=== PATIENT | male | born 1940 | race Caucasian/White ===

== ENCOUNTER → 2016-10-26 | Outpatient (CLI) | payer MEDICARE, OTHER ==
[~2016-10-26] VITALS: Ht 170.2 cm; Wt 64.9 kg
[~2016-10-26] MED LIST: AMLO10TA82 PO; APIX5TAB2 PO; ASP325TEC PO; ASP81CT PO; ATEN50TA PO; CATHETER FLUSH 10 ML SYR IV PRN; LISI-552 PO; LISI10TA2 PO; LOVA40TA2 PO; METO-352 PO; NITRODUR; NTR.4SL SL; REGADENOSON 0.4 MG/5 ML SYR (LEXISCAN) IV ONE
[2016-10-26 09:46] VITALS: BP 200/108
--- NOTE | 2016-10-26 19:12 | STRESS TEST ---
DATE OF SERVICE: 10/26/2016 RESTING AND POST REGADENOSON TECHNETIUM 99M TETROFOSMIN SPECT CT IMAGING PRIMARY PHYSICIAN: Ranjit Spaulding MD CLINICAL DIAGNOSIS: Chest discomfort, shortness of breath, paroxysmal atrial fibrillation. Baseline images were carried out after injection of 10.08 mCi of technetium 99M Tetrofosmin for stress imaging. Subsequently, 0.4 mg regadenoson was given, which was followed by 32.8 mCi technetium 99M Tetrofosmin for stress imaging. The electrocardiogram showed sinus rhythm with left bundle branch block and isolated premature ventricular contractions. The electrocardiogram did not change significantly with the regadenoson infusion. The patient tolerated the procedure well. Review of images at rest and following stress indicate some diaphragmatic attenuation of the inferior wall, both at rest and following regadenoson infusion. However, there is no distinct evidence of any significant myocardial ischemia or infarction. Gated images show normal global left ventricular systolic function with normal regional wall motion. Left ventricular ejection fraction is calculated to be 56%. Left ventricular end diastolic volume is 61 mL. TID is absent (0.93). CONCLUSIONS: 1. No evidence of any significant myocardial ischemia or infarction on this study. 2. Normal regional wall motion. 3. Normal global left ventricular systolic function with a calculated ejection fraction of 56%. Job ID: [id number] DocumentID: [id number] Dictated Date: 10/26/2016 13:27:57 Sales Data Analyst Date: 10/26/2016 17:07:56 Dictated By: SAMEERA WALTER MD, MA, FACP, FACC,
== END ==
LOC: CARD 08:28
PROVIDERS: ATTEND Internal Medicine Cardiovascular Disease
DX: J43.8 Other emphysema (principal); I25.10 Atherosclerotic heart disease of native coronary artery without angina pectoris; I48.0 Paroxysmal atrial fibrillation; R06.02 Shortness of breath; Z86.79 Personal history of other diseases of the circulatory system
CPT/HCPCS: 78452; 93017

== ENCOUNTER → 2016-11-01 | Outpatient (CLI) | payer MEDICARE, OTHER ==
[~2016-11-01] MED LIST changes: -CATHETER FLUSH 10 ML SYR IV PRN; -REGADENOSON 0.4 MG/5 ML SYR (LEXISCAN) IV ONE
== END ==
LOC: CARD 11:23
PROVIDERS: ATTEND Internal Medicine Cardiovascular Disease
DX: R06.02 Shortness of breath (principal); J43.8 Other emphysema; I25.10 Atherosclerotic heart disease of native coronary artery without angina pectoris; I48.0 Paroxysmal atrial fibrillation; Z86.79 Personal history of other diseases of the circulatory system
CPT/HCPCS: 93306

== ENCOUNTER 2017-10-10 17:20 | Emergency (ER) | payer MEDICARE, OTHER ==
[~2017-10-10] VITALS: Ht 172.7 cm; Wt 72.6 kg
[2017-10-10] MEDS ORDERED: RT-ALBUTEROL/IPRATROPIUM 3 ML (DUONEB) VIAL INH ONE (17:30)
[2017-10-10] MEDS ORDERED: ASPIRIN 81 MG CHEW (CHILDREN'S ASA) PO ONE (17:30)
[2017-10-10 17:47] LABS: BASOPHILS # (AUTO) 0.1 10^3/uL (0.0-0.1); BASOPHILS % (AUTO) 1 % (0-10); EOSINOPHILS # (AUTO) 0.2 10^3/uL (0.0-0.3); EOSINOPHILS % (AUTO) 2 % (0-10); HEMATOCRIT 44 % (40-54); HEMOGLOBIN 15.8 G/DL (13.3-17.7); LYMPHOCYTES # (AUTO) 1.7 X 10^3 (1.0-4.0); LYMPHOCYTES % (AUTO) 27 % (12-44); MEAN CORPUSCULAR HEMOGLOBIN 32 PG (25-34); MEAN CORPUSCULAR HGB CONC 36 G/DL (32-36); MEAN CORPUSCULAR VOLUME 90 FL (80-99); MEAN PLATELET VOLUME 9.4 FL (7.4-10.4); MONOCYTES # (AUTO) 0.7 X 10^3 (0.0-1.0); MONOCYTES % (AUTO) 11 % (0-12); NEUTROPHILS # (AUTO) 3.6 X 10^3 (1.8-7.8); NEUTROPHILS % (AUTO) 59 % (42-75); PLATELET COUNT 217 10^3/uL (130-400); RED BLOOD COUNT 4.94 10^6/uL (4.35-5.85); RED CELL DISTRIBUTION WIDTH 13.9 % (10.0-14.5); WHITE BLOOD COUNT 6.2 10^3/uL (4.3-11.0)
--- NOTE | 2017-10-10 17:50 | ED Respiratory ---
General Stated Complaint: CHEST PAIN Source: patient Exam Limitations: no limitations History of Present Illness Date Seen by Provider: October 10, 2017 Time Seen by Provider: 17:29 Initial Comments The patient presents to the ER by private conveyance with a friend and his son. The patient is a history of stroke and is a difficult historian but says he was not having any chest pain but the friend noted that about 30 minutes prior to arrival he was clutching his chest and struggling with expectorating of large amount of mucousy phlegm. Patient is been having a cough is been more productive over the last week. He's not had any fevers chills nausea vomiting, sweats, chest pain, abdominal pain, diarrhea. He does of a history of COPD. He does not follow with any doctor for several years. He has a known history of coronary artery disease and history of stroke. He is not taking any medications right now. He does smoke about a pack to a pack and a half per day according to his son. Allergies and Home Medications Allergies Coded Allergies: codeine (Unverified Allergy, Unknown, 01/10/14) Home Medications Lisinopril 20 Mg Tablet, 20 MG PO DAILY Prescribed by: PETE GOULD on 01/23/16 1202 Metoprolol Succinate 50 Mg Tab.er.24h, 50 MG PO DAILY Prescribed by: PETE GOULD on 01/23/16 1202 Patient Home Medication List Home Medication List Reviewed: Yes Review of Systems Constitutional: No chills, No diaphoresis EENTM: No hearing loss, No ear pain Respiratory: cough, phlegm, short of breath; No wheezing Cardiovascular: No chest pain; Hx of Intervention; No palpitations, No syncope ; vascular heart diseas Gastrointestinal: No abdominal pain, No constipation, No diarrhea, No nausea, No vomiting Genitourinary: No discharge, No dysuria Musculoskeletal: No back pain, No joint pain Past Jypuyxp-Adslub-Ywjqwu Hx Patient Social History Alcohol Use: Regular Use Alcohol Beverage of Choice: Whiskey Recreational Drug Use: No Smoking Status: Current Everyday Smoker Type Used: Cigarettes (1-1.5 ppd) Recent Hopitalizations: No Immunizations Up To Date Tetanus Booster (TDap): Unknown Past Medical History Coronary Stent, Gallbladder Coronary Artery Disease, Heart Attack, Hypertension Reproductive Disorders: No Sexually Transmitted Disease: No HIV/AIDS: No Adverse Reaction/Blood Tranf: No Family Medical History Arthritis G8 SISTER (fell not sure of injuries) Asthma G8 SISTER (passed from some kind of lung prob) Cardiovascular disease 19 FATHER (heart problems) Visual disorder 19 MOTHER (vision but does not know what she passed from) Physical Exam Vital Signs Vital Signs - First Documented 10/10/17 17:20 Temp 97.5 Pulse 88 Resp 20 B/P (MAP) 137/82 (100) Capillary Refill : General Appearance: no apparent distress, thin Eyes: Bilateral Eye Normal Inspection, Bilateral Eye PERRL, Bilateral Eye EOMI HEENT: PERRL/EOMI, normal ENT inspection, pharynx normal Neck: non-tender, full range of motion, normal inspection Respiratory: chest non-tender, no respiratory distress, no accessory muscle use , decreased breath sounds, wheezing (faint bilateral) Cardiovascular: normal peripheral pulses, regular rate, rhythm, no edema Gastrointestinal: normal bowel sounds, non tender, soft Extremities: no pedal edema, normal capillary refill Neurologic/Psychiatric: alert, normal mood/affect, other (oriented to person and place as well as situation but not time. He has baseline deficits of slurred speech and walks with a cane per his son.) Skin: normal color, warm/dry, other (arthopod infestation) Progress/Results/Core Measures Suspected Sepsis SIRS Temperature: Pulse: Respiratory Rate: Laboratory Tests 10/10/17 17:35: White Blood Count 6.2 Blood Pressure / Mean: Laboratory Tests 10/10/17 17:35: Creatinine 1.00, INR Comment 1.0, Platelet Count 217, Total Bilirubin 1.3H Results/Orders Lab Results Laboratory Tests Test 10/10/17 17:35 10/10/17 18:09 Range/Units White Blood Count 6.2 4.3-11.0 10^3/uL Red Blood Count 4.94 4.35-5.85 10^6/uL Hemoglobin 15.8 13.3-17.7 G/DL Hematocrit 44 40-54 % Mean Corpuscular Volume 90 80-99 FL Mean Corpuscular Hemoglobin 32 25-34 PG Mean Corpuscular Hemoglobin Concent 36 32-36 G/DL Red Cell Distribution Width 13.9 10.0-14.5 % Platelet Count 217 130-400 10^3/uL Mean Platelet Volume 9.4 7.4-10.4 FL Neutrophils (%) (Auto) 59 42-75 % Lymphocytes (%) (Auto) 27 12-44 % Monocytes (%) (Auto) 11 0-12 % Eosinophils (%) (Auto) 2 0-10 % Basophils (%) (Auto) 1 0-10 % Neutrophils # (Auto) 3.6 1.8-7.8 X 10^3 Lymphocytes # (Auto) 1.7 1.0-4.0 X 10^3 Monocytes # (Auto) 0.7 0.0-1.0 X 10^3 Eosinophils # (Auto) 0.2 0.0-0.3 10^3/uL Basophils # (Auto) 0.1 0.0-0.1 10^3/uL Prothrombin Time 13.2 12.2-14.7 SEC INR Comment 1.0 0.8-1.4 Activated Partial Thromboplast Time 26 24-35 SEC D-Dimer 0.46 0.00-0.49 UG/ML Sodium Level 136 135-145 MMOL/L Potassium Level 3.6 3.6-5.0 MMOL/L Chloride Level 105 98-107 MMOL/L Carbon Dioxide Level 19 L 21-32 MMOL/L Anion Gap 12 5-14 MMOL/L Blood Urea Nitrogen 10 7-18 MG/DL Creatinine 1.00 0.60-1.30 MG/DL Estimat Glomerular Filtration Rate > 60 BUN/Creatinine Ratio 10 Glucose Level 84 70-105 MG/DL Calcium Level 9.2 8.5-10.1 MG/DL Magnesium Level 2.0 1.8-2.4 MG/DL Total Bilirubin 1.3 H 0.1-1.0 MG/DL Aspartate Amino Transf (AST/SGOT) 16 5-34 U/L Alanine Aminotransferase (ALT/SGPT) 8 0-55 U/L Alkaline Phosphatase 64 40-136 U/L Myoglobin 39.1 10.0-92.0 NG/ML Troponin I < 0.30 <0.30 NG/ML B-Type Natriuretic Peptide 365.3 H <100.0 PG/ML Total Protein 6.9 6.4-8.2 GM/DL Albumin 4.0 3.2-4.5 GM/DL Serum Alcohol 204 H <10 MG/DL Urine Color YELLOW Urine Clarity CLEAR Urine pH 6 5-9 Urine Specific [place] 1.010 L 1.016-1.022 Urine Protein 1+ H NEGATIVE Urine Glucose (UA) NEGATIVE NEGATIVE Urine Ketones NEGATIVE NEGATIVE Urine Nitrite NEGATIVE NEGATIVE Urine Bilirubin NEGATIVE NEGATIVE Urine Urobilinogen NORMAL NORMAL MG/DL Urine Leukocyte Esterase 1+ H NEGATIVE Urine RBC (Auto) NEGATIVE NEGATIVE Urine RBC NONE /HPF Urine WBC 2-5 /HPF Urine Squamous Epithelial Cells RARE /HPF Urine Crystals NONE /LPF Urine Bacteria NEGATIVE /HPF Urine Casts NONE /LPF Urine Mucus NEGATIVE /LPF Urine Culture Indicated NO Urine Opiates Screen NEGATIVE NEGATIVE Urine Oxycodone Screen NEGATIVE NEGATIVE Urine Methadone Screen NEGATIVE NEGATIVE Urine Propoxyphene Screen NEGATIVE NEGATIVE Urine Barbiturates Screen NEGATIVE NEGATIVE Ur Tricyclic Antidepressants Screen NEGATIVE NEGATIVE Urine Phencyclidine Screen NEGATIVE NEGATIVE Urine Amphetamines Screen NEGATIVE NEGATIVE Urine Methamphetamines Screen NEGATIVE NEGATIVE Urine Benzodiazepines Screen NEGATIVE NEGATIVE Urine Cocaine Screen NEGATIVE NEGATIVE Urine Cannabinoids Screen NEGATIVE NEGATIVE My Orders Orders - KELLI MEEKS Albuterol/Ipra Inhalation Soln (Duoneb I (10/10/17 17:30) Svn Small Volume Nebulizer (10/10/17 17:30) Cbc With Automated Diff (10/10/17:30) Magnesium (10/10/17 17:30) Ekg Tracing (10/10/17 17:30) Cardiac Profile 1 (10/10/17 17:30) Comprehensive Metabolic Panel (10/10/17:30) Myoglobin Serum (10/10/17 17:30) Protime With Inr (10/10/17 17:30) Partial Thromboplastin Time (10/10/17 17:30) O2 (10/10/17 17:30) Monitor-Rhythm Ecg Trace Only (10/10/17:30) Aspirin Chewable Tablet (Baby Aspirin Ch (10/10/17 17:30) Saline Lock/Iv-Start (10/10/17 17:30) BNP (10/10/17 17:30) Fibrin Degradation Products (10/10/17 17:30) Drug Screen Stat (Urine) (10/10/17 17:30) Ua Culture If Indicated (10/10/17 17:30) Sputum Culture (10/10/17 17:30) Alcohol (10/10/17 17:35) Chest 1 View, Ap/Pa Only (10/10/17 17:30) Vital Signs/I&O 10/10/17 17:20 Temp 97.5 Pulse 88 Resp 20 B/P (MAP) 137/82 (100) Capillary Refill : Progress Note : Time: 18:30 Progress Note The patient has decided that he would like to have another drink and has decided to go AMA despite counseling from nursing staff and myself. We have advised him to follow up with a primary care provider or return if his symptoms get worse. Other than the alcohol level of 204 his labs are remarkably unremarkable. ECG Initial ECG Impression Date: October 10, 2017 Initial ECG Impression Time: 17:25 Initial ECG Rate: 93 Initial ECG Rhythm: Normal Sinus Initial ECG Intervals: QT (563) Initial ECG Impression: Nonspecific Changes Initial ECG Comparisson: Unchanged Comment Left bundle branch block with sinus rhythm and no discernible changes. Diagnostic Imaging Diagonstic Imaging: Xray Plain Films/CT/US/NM/MRI: chest (1v) Comments VIA [facility]. [place], [place] NAME: MIGUELITO MCDOWELL [facility] REC#: [id number] PT STATUS: REG ER : 1940 PHYSICIAN: KELLI MEEKS MD ADMIT DATE: 10/10/17/ER Draft Date of Exam:10/10/17 CHEST 1 VIEW, AP/PA ONLY EXAM: CHEST 1 VIEW, AP/PA ONLY. INDICATION: Chest pain. COMPARISON: CT chest without contrast 01/11/2014. FINDINGS: Normal heart size and central pulmonary vascularity. Calcified aorta. No dense consolidation, pleural effusion, or pneumothorax. Chronic posterior left rib fractures. No acute osseous findings. IMPRESSION: No acute cardiopulmonary findings. Dictated on workstation # [id number] Dict: 10/10/17 1807 Trans: 10/10/17 1812 [id number] Interpreted by: JENNIFER DEY MD Electronically signed by: Reviewed: Reviewed by Me Departure Impression Primary Impression: Dyspnea Qualified Codes: R06.02 - Shortness of breath Additional Impression: Cough Disposition: 07 AGAINST MEDICAL ADVICE Condition: Against Medical Advice Departure-Patient Inst. Referrals: TATY GUTIERREZ MD (PCP/Family) Primary Care Physician Copy Copies To 1: TATY GUTIERREZ MD, TITUS J October 10, 2017 17:50
[2017-10-10 17:54] LABS: PROTHROMBIN TIME PATIENT 13.2 SEC (12.2-14.7)
[2017-10-10 18:04] LABS: ALANINE AMINOTRANSFERASE 8 U/L (0-55); ALKALINE PHOSPHATASE 64 U/L (40-136); BILIRUBIN,TOTAL 1.3 MG/DL (0.1-1.0); BUN/CREATININE RATIO 10; CALCIUM 9.2 MG/DL (8.5-10.1); CARBON DIOXIDE 19 MMOL/L (21-32); CHLORIDE 105 MMOL/L (98-107); GFR ESTIMATED > 60; GLUCOSE 84 MG/DL (70-105); POTASSIUM 3.6 MMOL/L (3.6-5.0); SODIUM 136 MMOL/L (135-145); TOTAL PROTEIN 6.9 GM/DL (6.4-8.2)
[2017-10-10 18:10] LABS: MYOGLOBIN SERUM 39.1 NG/ML (10.0-92.0)
--- NOTE | 2017-10-10 18:12 | Diagnostic Imaging Report ---
EXAM: CHEST 1 VIEW, AP/PA ONLY. INDICATION: Chest pain. COMPARISON: CT chest without contrast 01/11/2014. FINDINGS: Normal heart size and central pulmonary vascularity. Calcified aorta. No dense consolidation, pleural effusion, or pneumothorax. Chronic posterior left rib fractures. No acute osseous findings. IMPRESSION: No acute cardiopulmonary findings. Dictated by: Dictated on workstation # [id number]
[2017-10-10 18:16] LABS: BILIRUBIN,URINE NEGATIVE (NEGATIVE); CLARITY,URINE CLEAR; COLOR,URINE YELLOW; GLUCOSE, URINE (UA) NEGATIVE (NEGATIVE); KETONES,URINE NEGATIVE (NEGATIVE); LEUKOCYTE ESTERASE ,URINE 1+ (NEGATIVE); NITRITE,URINE NEGATIVE (NEGATIVE); PH,URINE 6 (5-9); PROTEIN,URINE 1+ (NEGATIVE); UROBILINOGEN,URINE NORMAL (NORMAL)
[2017-10-10 18:27] LABS: BACTERIA,URINE NEGATIVE /HPF; SQUAMOUS EPITHELIAL CELL,UR RARE /HPF
[2017-10-10 18:31] LABS: AMPHETAMINE SCREEN, URINE NEGATIVE (NEGATIVE); BARBITURATE SCREEN URINE NEGATIVE (NEGATIVE); BENZODIAZEPINES SCREEN URINE NEGATIVE (NEGATIVE); CANNABINOID SCREEN, URINE NEGATIVE (NEGATIVE); COCAINE SCREEN URINE NEGATIVE (NEGATIVE); METHADONE STAT NEGATIVE (NEGATIVE); METHAMPHETAMINE SCREEN URINE S NEGATIVE (NEGATIVE); OPIATE SCREEN URINE NEGATIVE (NEGATIVE); OXYCODONE STAT NEGATIVE (NEGATIVE); PROPOXYPHENE STAT NEGATIVE (NEGATIVE); TRICYCLIC ANTIDEPRESSANTS SCRE NEGATIVE (NEGATIVE)
[2017-10-10 18:45] VITALS: BP 138/86
== END 2017-10-10 18:45 | disposition left against medical advice (07) ==
LOC: EDUNIT# 17:20 → ER 17:21
DX: R06.00 Dyspnea, unspecified (principal); R05 Cough; I25.10 Atherosclerotic heart disease of native coronary artery without angina pectoris; I10 Essential (primary) hypertension; I25.2 Old myocardial infarction; F17.210 Nicotine dependence, cigarettes, uncomplicated; Z82.49 Family history of ischemic heart disease and other diseases of the circulatory system; Z95.5 Presence of coronary angioplasty implant and graft; Z88.5 Allergy status to narcotic agent; Z86.73 Personal history of transient ischemic attack (TIA), and cerebral infarction without residual deficits
CPT/HCPCS: 36415; 71045; 80053; 80306; 80320; 81000; 83735; 83874; 83880; 84484; 85025; 85379; 85610; 85730; 93005; 93041

== ENCOUNTER 2019-07-14 11:05 | Emergency (ER) | payer MEDICARE ==
[~2019-07-14] VITALS: Ht 170 cm; Wt 75.0 kg
[2019-07-14] MEDS ORDERED: ETOMIDATE IV SOLN 20 MG/10 ML VIAL IV ONE (11:06)
[2019-07-14] MEDS ORDERED: LIDOCAINE DRIP PRE-MIX 2 GM/500 ML BAG IV ONE (11:06)
[2019-07-14] MEDS ORDERED: NS 1000 ML IV BAG IV ONE (11:06)
[2019-07-14] MEDS ORDERED: fentaNYL INJECTION 100 MCG/2 ML AMP INJ ONE (11:06)
[2019-07-14] MEDS ORDERED: MAG SULFATE 1 GM/100 ML IV PRE-MIX BAG IV ONE (11:06)
[2019-07-14] MEDS ORDERED: SUCCINYLCHOLINE INJ 100 MG/5 ML SYR INJ ONE (11:06)
[2019-07-14] MEDS ORDERED: EPINEPHrine 0.1 MG/ML 10 ML (HOSPIRA) SYR IJ ONE (11:06)
[2019-07-14] MEDS ORDERED: CATHETER FLUSH 10 ML SYR IV ONE (11:06)
[2019-07-14] MEDS ORDERED: PROPOFOL DRIP (ICU) 100 ML IV ONE (11:13)
[2019-07-14 11:52] LABS: BASOPHILS # (AUTO) 0.1 10^3/uL (0.0-0.1); BASOPHILS % (AUTO) 2 % (0-10); EOSINOPHILS # (AUTO) 0.1 10^3/uL (0.0-0.3); EOSINOPHILS % (AUTO) 2 % (0-10); HEMATOCRIT 48 % (40-54); HEMOGLOBIN 15.7 G/DL (13.3-17.7); LYMPHOCYTES # (AUTO) 3.3 X 10^3 (1.0-4.0); LYMPHOCYTES % (AUTO) 52 % (12-44); MEAN CORPUSCULAR HEMOGLOBIN 32 PG (25-34); MEAN CORPUSCULAR HGB CONC 33 G/DL (32-36); MEAN CORPUSCULAR VOLUME 96 FL (80-99); MEAN PLATELET VOLUME 10.8 FL (7.4-10.4); MONOCYTES # (AUTO) 0.3 X 10^3 (0.0-1.0); MONOCYTES % (AUTO) 5 % (0-12); NEUTROPHILS # (AUTO) 2.4 X 10^3 (1.8-7.8); NEUTROPHILS % (AUTO) 39 % (42-75); PLATELET COUNT 132 10^3/uL (130-400); RED CELL DISTRIBUTION WIDTH 13.4 % (10.0-14.5); WHITE BLOOD COUNT 6.3 10^3/uL (4.3-11.0)
--- NOTE | 2019-07-14 11:53 | Diagnostic Imaging Report ---
CHEST 1 VIEW, AP/PA ONLY Indication: Post intubation. Comparison: 10/10/2017. Findings: ET tube has tip 3.5 cm above the cielo. There is a small to moderate-sized pneumothorax involving approximately 20% of the right hemithorax volume. No mediastinal shift. No left-sided pneumothorax. Heart is enlarged. Prominence in the right perihilar region may be due to atelectasis. Impression: 1. [id number] right-sided pneumothorax without mediastinal shift. 2. Well-positioned ET tube. Dictated by: Dictated on workstation # [id number]
[2019-07-14 11:59] LABS: INR 1.4 (0.8-1.4); PROTHROMBIN TIME PATIENT 18.2 SEC (12.2-14.7)
[2019-07-14 12:05] LABS: ALBUMIN 3.3 GM/DL (3.2-4.5); BILIRUBIN,TOTAL 0.9 MG/DL (0.1-1.0); CALCIUM 8.6 MG/DL (8.5-10.1); CREATININE SERUM 1.42 MG/DL (0.60-1.30); MAGNESIUM 2.4 MG/DL (1.6-2.4); TOTAL PROTEIN 5.9 GM/DL (6.4-8.2)
--- NOTE | 2019-07-14 12:16 | NUR ---
[facility] contacted by Minna CERRATO and spoke with Sindy. She advises the patient is not a candidate for organ donation. Referral number is : [id number].
[2019-07-14 12:26] LABS: POTASSIUM 2.5 MMOL/L (3.6-5.0)
--- NOTE | 2019-07-14 12:38 | NUR ---
1107 Patient arrived to ER via [facility]. Patient has I-Jel in place and being ventilated through I-Jel. CPR in process by EMS. Per patient's daughter, patient was complaining of chest pain this morning and was attempting to get dressed when he collapsed and went unresponsive. 911 was called at 10:41. EMS states they arrived on scene and [facility] had defibrillated x 1 with AED prior to EMS arrival. EMS states patient was in v-fib on monitor and they shocked another 2 times prior to arrival in ER. Patient was given Epinephrine 1 mg x 2 times and Amiodorone 300 mg IV by EMS prior to arrival. Patient arrives in ER with no pulse, PEA on the monitor. CPR continued. EMS had placed an IV to the left AC that is infiltrated. 11:08 IO placed in right lower leg. NS Fluids infusing through IO. 1108 Epinephrine 1 mg given through IO. 1110 Blood Glucose check was 194 1111 Patient has pulse present to the left femoral artery. Monitor shows Sinus rhythm with multiple PVC's. 1111 BP 214/113, Pulse 72, Oxygen saturation 84%- ventilated through I-Jel 1113 EKG done and given to Dr. Delgadillo 1114 IV 20 ga placed in right AC x 1 attempt by Emily CERRATO
--- NOTE | 2019-07-14 12:45 | ED CPR ---
HPI-CPR General Chief Complaint: Code Blue Stated Complaint: CODE Nursing Triage Note: [facility]INT BROUGHT TO ER BY [facility] IN CARDIAC ARREST. PER FAMILY MEMBERS PATIENT WAS COMPLAINING OF CHEST PAIN THIS MORNING AND WHILE ATTEMPTING TO GET DRESSED TO COME TO ER BY PRIVATE VEHICLE PATIENT COLLAPSED AND BECAME UNRESPONSIVE. PER EMS PATIENT WAS DEFIBRILLATED X 1 BY [facility] WITH AED PRIOR TO EMS ARRIVAL. EMS ARRIVED AND FOUND PATIENT IN V-FIB AND HAD A TOTAL OF TWO MORE SHOCKS DURING TRANSPORT. EMS GAVE EPI X 2 DOSES AND AMIODORONE 300 MG IV. PATIENT'S IV UPON ARRIVAL IS INFILTRATED TO LEFT AC. Sepsis Screen: No Definite Risk Source of Information: EMS, Family Exam Limitations: Physical Impairments History of Present Illness Date Seen by Provider: Jul 14, 2019 Time Seen by Provider: 11:07 Initial Comments This 79-year-old gentleman presents to the emergency room via EMS after having a cardiac arrest in his home. He was experiencing chest pain and getting ready to come to the emergency room when he collapsed and became unresponsive. The arrest was witnessed and family attempted CPR. Emergency services arrived and rhythm was analyzed during CPR. He was defibrillated a total of 3 times for ventricular fibrillation and given 2 doses of epinephrine in the field and in route. Amiodarone 300 mg IV was administered. He arrives with ongoing CPR in asystole. Family reports he had not been feeling well in recent days. They also report he is fairly noncompliant with his medications. Blood sugar was 194. Allergies and Home Medications Allergies Coded Allergies: codeine (Unverified Allergy, Unknown, 01/10/14) Home Medications Lisinopril 20 Mg Tablet, 20 MG PO DAILY Prescribed by: PETE GOULD on 01/23/16 1202 Metoprolol Succinate 50 Mg Tab.er.24h, 50 MG PO DAILY Prescribed by: PETE GOULD on 01/23/16 1202 Patient Home Medication List Home Medication List Reviewed: Yes Review of Systems Review of Systems Constitutional: see HPI EENTM: No Symptoms Reported Respiratory: See HPI Cardiovascular: See HPI Gastrointestinal: No Symptoms Reported Genitourinary: No Symptoms Reported Musculoskeletal: no symptoms reported Skin: no symptoms reported Psychiatric/Neurological: See HPI Endocrine: No Symptoms Reported Hematologic/Lymphatic: No Symptoms Reported Past Mlrpblh-Mppofi-Tafhpl Hx Past Med/Social Hx: Reviewed Nursing Past Med/Soc Hx Patient Social History Alcohol Use: Regular Use Number of Drinks Today: GG Alcohol Beverage of Choice: Whiskey Recreational Drug Use: No Smoking Status: Current Everyday Smoker Type Used: Cigarettes 2nd Hand Smoke Exposure: Yes Recent Foreign Travel: No Contact w/Someone Who Travel: No Recent Infectious Disease Expo: No Recent Hopitalizations: No Immunizations Up To Date Tetanus Booster (TDap): Unknown Past Medical History Surgeries: Yes Coronary Stent, Gallbladder Respiratory: No Cardiac: Yes Coronary Artery Disease, Heart Attack, Hypertension Neurological: No Reproductive Disorders: No Sexually Transmitted Disease: No HIV/AIDS: No Gastrointestinal: No Musculoskeletal: No Endocrine: No Cancer: No Psychosocial: No Integumentary: No Blood Disorders: No Adverse Reaction/Blood Tranf: No Family Medical History Arthritis G8 SISTER (fell not sure of injuries) Asthma G8 SISTER (passed from some kind of lung prob) Cardiovascular disease 19 FATHER (heart problems) Visual disorder 19 MOTHER (vision but does not know what she passed from) Physical Exam Vital Signs Vital Signs - First Documented 07/14/19 07/14/19 11:07 11:28 Pulse 0 Resp 0 B/P (MAP) 102/60 Pulse Ox 84 O2 Delivery Ambu Bag O2 Flow Rate 15.00 Capillary Refill : Greater Than 3 Seconds Height, Weight, BMI Height: 5'8.00" Weight: 160lbs. 0.0oz. 72.820957st; 25.00 BMI Method:Stated General Appearance: Other (Unresponsive, pale, mottled) HEENT: Other (I-gel tube in place) Neck: Normal Inspection Respiratory: Other (Poor chest rise and compliance with BVM assistance. Patient did have some spontaneous respirations.) Cardiovascular: Other (Pulseless) Gastrointestinal: Soft; No Distended Extremity: No Pedal Edema, Other (Pale, cool, and mottled) Neurologic/Psychiatric: Other (Unresponsive) Skin: Normal Color, Warm/Dry Procedures/Interventions Date of ETT Placement: Jul 14, 2019 Time of ETT Placement: 11:26 Intubation Method: orotracheal Tube Size: 7.50 Medications: Etomidate, Propofol, Succinylcholine Positive End Tide CO2: No Breath Sounds after Intubation: bilateral-equal Intubation Complications: O2 saturation decreased Post Intubation Xray: Yes Right pneumothorax. ET tube in good position The I-gel device did not seem to be affording good air movement. There is very little chest rise. The device was removed. Induction was achieved with etomidate and succinylcholine 50 mg followed by an additional 50 mg. Intubation with a Juan laryngoscope blade was unsuccessful. This was then attempted with a Adamson blade with a smaller ET tube. There was intubation of the esophagus confirmed by no color change, breath sounds in the abdomen, and no chest rise. ET tube was removed. Intubation with the Michael laryngoscope was attempted unsuccessfully. Finally ABG was used to guide the laryngoscope through the vocal cords. Intubation was successful. This did improve his respiratory condition. Progress/Results/Core Measures Results/Orders Lab Results Laboratory Tests Test 07/14/19 11:10 07/14/19 11:15 Range/Units Glucometer 194 H 70-110 MG/DL White Blood Count 6.3 4.3-11.0 10^3/uL Red Blood Count 4.99 4.35-5.85 10^6/uL Hemoglobin 15.7 13.3-17.7 G/DL Hematocrit 48 40-54 % Mean Corpuscular Volume 96 80-99 FL Mean Corpuscular Hemoglobin 32 25-34 PG Mean Corpuscular Hemoglobin Concent 33 32-36 G/DL Red Cell Distribution Width 13.4 10.0-14.5 % Platelet Count 132 130-400 10^3/uL Mean Platelet Volume 10.8 H 7.4-10.4 FL Neutrophils (%) (Auto) 39 L 42-75 % Lymphocytes (%) (Auto) 52 H 12-44 % Monocytes (%) (Auto) 5 0-12 % Eosinophils (%) (Auto) 2 0-10 % Basophils (%) (Auto) 2 0-10 % Neutrophils # (Auto) 2.4 1.8-7.8 X 10^3 Lymphocytes # (Auto) 3.3 1.0-4.0 X 10^3 Monocytes # (Auto) 0.3 0.0-1.0 X 10^3 Eosinophils # (Auto) 0.1 0.0-0.3 10^3/uL Basophils # (Auto) 0.1 0.0-0.1 10^3/uL Prothrombin Time 18.2 H 12.2-14.7 SEC INR Comment 1.4 0.8-1.4 Activated Partial Thromboplast Time 68 H 24-35 SEC Sodium Level 143 135-145 MMOL/L Potassium Level 2.5 *L 3.6-5.0 MMOL/L Chloride Level 106 98-107 MMOL/L Carbon Dioxide Level 14 L 21-32 MMOL/L Anion Gap 23 H 5-14 MMOL/L Blood Urea Nitrogen 9 7-18 MG/DL Creatinine 1.42 H 0.60-1.30 MG/DL Estimat Glomerular Filtration Rate 48 BUN/Creatinine Ratio 6 Glucose Level 219 H 70-105 MG/DL Calcium Level 8.6 8.5-10.1 MG/DL Corrected Calcium 9.2 8.5-10.1 MG/DL Magnesium Level 2.4 1.6-2.4 MG/DL Total Bilirubin 0.9 0.1-1.0 MG/DL Aspartate Amino Transf (AST/SGOT) 204 H 5-34 U/L Alanine Aminotransferase (ALT/SGPT) 145 H 0-55 U/L Alkaline Phosphatase 105 40-136 U/L Myoglobin 1743.1 H 10.0-92.0 NG/ML Troponin I 0.709 *H <0.028 NG/ML Total Protein 5.9 L 6.4-8.2 GM/DL Albumin 3.3 3.2-4.5 GM/DL My Orders Orders - GRANT BERG MD Propofol Drip (Icu) (Diprivan Drip (Icu) (07/14/19 11:13) Cbc With Automated Diff (07/14/19 11:42) Magnesium (07/14/19 11:42) Chest 1 View, Ap/Pa Only (07/14/19 11:42) Ekg Tracing (07/14/19 11:42) Comprehensive Metabolic Panel (07/14/19 11:42) Myoglobin Serum (07/14/19 11:42) Protime With Inr (07/14/19 11:42) Partial Thromboplastin Time (07/14/19 11:42) O2 (07/14/19 11:42) Monitor-Rhythm Ecg Trace Only (07/14/19 11:42) Ed Iv/Invasive Line Start (07/14/19 11:42) Troponin I (07/14/19 11:15) Succinylcholine Injection (Succinylcholi (07/14/19 11:06) Etomidate Injection (Amidate Injection) (07/14/19 11:06) Fentanyl Injection (Sublimaze Injection (07/14/19 11:06) Lidocaine Drip (Xylocaine Drip) (07/14/19 11:06) Magnesium 1 Gm/100 Ml Ivpb (Magnesium Gutiérrez (07/14/19 11:06) Ns Iv 1000 Ml (Sodium Chloride 0.9%) (07/14/19 11:06) Epinephrine Emergency Syringe (Epinephr (07/14/19 11:06) Sodium Chloride Flush (Catheter Flush Sy (07/14/19 11:06) Vital Signs/I&O 07/14/19 07/14/19 07/14/19 11:07 11:28 14:15 Pulse 0 44 0 Resp 0 14 0 B/P (MAP) 102/60 0/0 Pulse Ox 84 84 0 O2 Delivery Ambu Bag Ambu Bag O2 Flow Rate 15.00 Diagnostic Imaging Diagonstic Imaging: Xray Plain Films/CT/US/NM/MRI: chest Comments Chest x-ray viewed by me and report reviewed. See report below: NAME: MIGUELITO MCDOWELL [facility] REC#: [id number] PT STATUS: REG ER : 1940 PHYSICIAN: GRANT BERG MD ADMIT DATE: 07/14/19/ER Signed Date of Exam:07/14/19 CHEST 1 VIEW, AP/PA ONLY CHEST 1 VIEW, AP/PA ONLY Indication: Post intubation. Comparison: 10/10/2017. Findings: ET tube has tip 3.5 cm above the cielo. There is a small to moderate-sized pneumothorax involving approximately 20% of the right hemithorax volume. No mediastinal shift. No left-sided pneumothorax. Heart is enlarged. Prominence in the right perihilar region may be due to atelectasis. Impression: 1. [id number] right-sided pneumothorax without mediastinal shift. 2. Well-positioned ET tube. Dictated by: Dictated on workstation # [id number] Dict: 07/14/19 1147 Trans: 07/14/19 1159 CVB [id number] Interpreted by: JANETH HARO MD Electronically signed by: JANETH HARO MD 07/14/19 1159 Critical Care Note Critical Care Start Time: 11:07 Stop Time: 11:59 Date of : Jul 14, 2019 Time of : 11:59 Progress The I-gel device did not seem to be affording good air movement. There is very little chest rise. The device was removed. Induction was achieved with etomidate and succinylcholine 50 mg followed by an additional 50 mg. Intubation with a Juan laryngoscope blade was unsuccessful. This was then attempted with a Adamson blade with a smaller ET tube. There was intubation of the esophagus confirmed by no color change, breath sounds in the abdomen, and no chest rise. ET tube was removed. Intubation with the Michael laryngoscope was attempted unsuccessfully. Finally ABG was used to guide the laryngoscope through the vocal cords. Intubation was successful. This did improve his respiratory condition. ACLS recommendations were pursued. Patient received multiple doses of epinephrine. CPR was continued until pulse was regained. Pulse eventually was lost again and CPR was restarted. ROSC was again achieved. Due to patient's severe condition and poor prognosis, I discussed the situation with the family. They elected to avoid any further cardiac resuscitation. They were brought to the room to see the patient. Chest x-ray returned at that time and pneumothorax was identified. Patient then lost pulse again. Family elected to refrain from further CPR. I offered to perform needle decompression of the pneumothorax. Family declined citing that his quality of life was very poor and he did not feel any further resuscitation would be appropriate or loving given the overall prognosis. Resuscitation efforts were discontinued. Patient was pronounced at 11:59 with family at bedside. See nursing documentation for times and sequence of events. Severe hypokalemia was noted on the labs after patient . Departure Impression Primary Impression: Cardiac arrest Additional Impressions: Ventricular fibrillation Pneumothorax, right Hypokalemia Disposition: 20 Condition: Departure-Patient Inst. Referrals: TATY GUTIERREZ MD (PCP/Family) Primary Care Physician Copy Copies To 1: TATY GUTIERREZ MD, JOSHUA T MD Jul 14, 2019 12:45
--- NOTE | 2019-07-14 12:46 | NUR ---
1114 I-Jel removed by Dr. Oneal to prepare for Intubation due to no chest rise and faint breath sounds with ventilation with I-Jel in place. . Patient ventilated with BVM. 1115 Etomidate 20 mg IVP right AC 1115 Succycholine 50 mg IVP right AC 1117 Succycholine 50 mg IVP right AC 1117 Airway suctioned with cayden's [address] Delgadillo 8.0 ETT. No success- Breath sounds present in Abdomen. Tube removed. Patient ventilated with BVM by RT. 1120 Lara placed by Renetta CERRATO. 16 FR with no urine output. 1122 Patient continues to have femerol pulse present. Pulse of 42- bradycardia with PVC's present, BP 183/92 Patient continues to be ventilated with BVM, Patient has agonal respirations present [address] Garrett with use of video larynoscope and boogie. ETT 7.5 and 26 cm at the lips. Chest rise present with no sounds by ausculatation in the abdomen. 1126 BP 102/60, pulse 44, Oxygen saturation 84%. patient ventilated by ETT tube with BVM. 1128 Propofol started to right AC IV at rate of 40 mcg/kg/min. 1129 Patient has no pulses present. PEA present on monitor. CPR started. 1130 Epinephrine 1 mg given IVP, Propofol stopped. 1130 Dr. Delgadillo speaking with family that is present.
--- NOTE | 2019-07-14 12:53 | NUR ---
Chaplain Matthew Craig present in patient's room speaking with family.
--- NOTE | 2019-07-14 13:01 | NUR ---
1132 Femoral pulses present. CPR stopped. Pulse 67 and irregular with multiple PVC's present. Oxygen saturation is 84%. Patient remains intubated and being ventilated with BVM. 1136 B/P 193/118 Pulse 77 and irregular 1137 Portable chest x-ray done in room 1140 Patient's skin remains mottled and cold. Warm fluids infusing. Warm blankets placed over patient. 1141 Pulse 62 and irregular, multiple PVC's present, BP 129/103, Oxygen saturation is 66% on forehead. Unable to obtain good waveform. 1143 End tidal Co2 25 via ETT tube 1144 Faint femoral pulses present with pulse 55, irregular with PVC's 1146 Faint femoral pulse present , Pulse 37, BP 93/67, Respiration 14 via ETT with BVM 1149 Faint femoral pulse 65 1152 No pulse present by palpation and auscultation- confirmed by Minna CERRATO, Emily CERRATO and Dr. Delgadillo. Family is present in room. Patient's daughter Karen advises they do not want anymore CPR done on the patient. She states the patient had stopped taking his medications recently and refused to be taken to his PCP. CPR stopped. 1154 Fentanyl 100 mcg IVP to right AC 1155 Ventilations stopped, IV fluids discontinued. ET tube removed. Patient has agonal gasps present. 1159 Time of called by Dr. Delgadillo. Family remains present in room by patient's bedside.
--- NOTE | 2019-07-14 13:15 | NUR ---
Patient's daughter Karen states they want the patient to be sent to [facility]. The home will be called when family wants to leave.
--- NOTE | 2019-07-14 13:26 | NUR ---
[facility] notified. 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
--- NOTE | 2019-07-14 13:55 | NUR ---
[facility] arrived and picked up the body.
[2019-07-14 14:15] VITALS: BP 0/0
== END 2019-07-14 14:05 | disposition expired ==
LOC: ER 11:05 → EDUNIT# 11:05 → ER 14:05
DX: I46.9 Cardiac arrest, cause unspecified (principal); I49.01 Ventricular fibrillation; J93.9 Pneumothorax, unspecified; E87.6 Hypokalemia; I10 Essential (primary) hypertension; I25.2 Old myocardial infarction; I25.10 Atherosclerotic heart disease of native coronary artery without angina pectoris; F17.210 Nicotine dependence, cigarettes, uncomplicated; Z95.5 Presence of coronary angioplasty implant and graft; Z88.5 Allergy status to narcotic agent; Z82.49 Family history of ischemic heart disease and other diseases of the circulatory system
CPT/HCPCS: 31500; 36415; 71045; 80053; 82962; 83735; 83874; 84484; 85025; 85610; 85730; 93005; 93041